=== PATIENT | female | born 1980 | race Hispanic/Latino ===

== ENCOUNTER 2017-09-06 17:35 | Emergency (ER) | payer MEDICAID ==
[2017-09-06 17:43] VITALS: BP 120/52
--- NOTE | 2017-09-06 21:43 | Emergency Department Report ---
- General Chief complaint: Skin/Abscess/Foreign Body Stated complaint: ABCESS, GROIN/ FEVER Time Seen by Provider: 09/06/17 21:01 Source: patient Mode of arrival: Ambulatory Limitations: No Limitations - History of Present Illness Initial comments: This is a 36-year-old female nontoxic, well nourished in appearance, no acute signs of distress presents to the ED with c/o of pus and drainage from an abscess in the left groin region. Patient stated she has a history of these. Patient stated the past week she developed an abscess but today it opened and started to drain. Patient denies any trauma to the region. Patient denies any fever, chills, headache, shortness of breathe, chest pain, numbness, tingling, abdominal pain. Patient states allergies to sulfa. Denies PMH. Patient stated she is not up to date with tetanus but refuses to get tetanus in the ED. MD complaint: abscess/boil -: week(s) (1) Tetanus Up to Date: no Location: genitals (left groin region) Severity: mild Severity scale (0 -10): 6 Quality: aching Consistency: constant Improves with: none Worsens with: none Context: none Associated symptoms: denies other symptoms Treatments Prior to Arrival: none - Related Data Previous Rx's Medication Instructions Recorded Last Taken Type Clindamycin [Clindamycin CAP] 300 mg PO Q8H 7 Days 09/06/17 Unknown Rx traMADol [Ultram] 50 mg PO Q6HR PRN #12 tablet 09/06/17 Unknown Rx Allergies Allergy/AdvReac Type Severity Reaction Status Date / Time Sulfa (Sulfonamide AdvReac Anaphylaxis Verified 09/06/17 17:45 Antibiotics) Abscess Boil HPI - HPI Chief Complaint: Skin/Abscess/Foreign Body Stated Complaint: ABCESS, GROIN/ FEVER Time Seen by Provider: 09/06/17 21:01 Home Medications: Previous Rx's Medication Instructions Recorded Last Taken Type Clindamycin [Clindamycin CAP] 300 mg PO Q8H 7 Days 09/06/17 Unknown Rx traMADol [Ultram] 50 mg PO Q6HR PRN #12 tablet 09/06/17 Unknown Rx Allergies/Adverse Reactions: Allergies Allergy/AdvReac Type Severity Reaction Status Date / Time Sulfa (Sulfonamide AdvReac Anaphylaxis Verified 09/06/17 17:45 Antibiotics) ED Review of Systems ROS: Stated complaint: ABCESS, GROIN/ FEVER Other details as noted in HPI Constitutional: denies: chills, fever Eyes: denies: eye pain, eye discharge, vision change ENT: denies: ear pain, throat pain Respiratory: denies: cough, shortness of breath, wheezing Cardiovascular: denies: chest pain, palpitations Endocrine: no symptoms reported Gastrointestinal: denies: abdominal pain, nausea, diarrhea Genitourinary: denies: urgency, dysuria, discharge Musculoskeletal: denies: back pain, joint swelling, arthralgia Skin: other (abscess). denies: rash, lesions Neurological: denies: headache, weakness, paresthesias Psychiatric: denies: anxiety, depression Hematological/Lymphatic: denies: easy bleeding, easy bruising ED Past Medical Hx - Past Medical History Previous Medical History?: No - Surgical History Past Surgical History?: Yes Additional Surgical History: tonsil, - Social History Smoking Status: Current Every Day Smoker Substance Use Type: None - Medications Home Medications: Home Medications Medication Instructions Recorded Confirmed Last Taken Type Clindamycin [Clindamycin CAP] 300 mg PO Q8H 7 Days 09/06/17 Unknown Rx traMADol [Ultram] 50 mg PO Q6HR PRN #12 tablet 09/06/17 Unknown Rx ED Physical Exam - General Limitations: No Limitations General appearance: alert, in no apparent distress - Head Head exam: Present: atraumatic, normocephalic, normal inspection - Eye Eye exam: Present: normal appearance, PERRL, EOMI. Absent: scleral icterus, conjunctival injection, nystagmus, periorbital swelling, periorbital tenderness Pupils: Present: normal accommodation - ENT ENT exam: Present: normal exam, normal orophraynx, mucous membranes moist, TM's normal bilaterally, normal external ear exam - Neck Neck exam: Present: normal inspection, full ROM. Absent: tenderness, meningismus, lymphadenopathy, thyromegaly - Respiratory Respiratory exam: Present: normal lung sounds bilaterally. Absent: respiratory distress, wheezes, rales, rhonchi, stridor, chest wall tenderness, accessory muscle use, decreased breath sounds, prolonged expiratory - Cardiovascular Cardiovascular Exam: Present: regular rate, normal rhythm, normal heart sounds. Absent: irregular rhythm, systolic murmur, diastolic murmur, rubs, gallop - GI/Abdominal GI/Abdominal exam: Present: soft, normal bowel sounds. Absent: distended, tenderness, guarding, rebound, rigid, diminished bowel sounds - Rectal Rectal exam: Present: deferred - External exam: Present: normal external exam, other (1 cm abscess that is open and draining with pus. No induration or fluctuance noted. Slight erythema noted. Callum Haines RN present during exam.) - Extremities Exam Extremities exam: Present: normal inspection, full ROM, normal capillary refill. Absent: tenderness, pedal edema, joint swelling, calf tenderness - Back Exam Back exam: Present: normal inspection, full ROM. Absent: tenderness, CVA tenderness (R), CVA tenderness (L), muscle spasm, paraspinal tenderness, vertebral tenderness, rash noted - Neurological Exam Neurological exam: Present: alert, oriented X3, CN II-XII intact, normal gait, reflexes normal - Psychiatric Psychiatric exam: Present: normal affect, normal mood - Skin Skin exam: Present: warm, dry, intact, normal color. Absent: rash ED Course Vital Signs 09/06/17 17:41 Temperature 98.7 F Pulse Rate 98 H Respiratory 18 Rate Blood Pressure 120/52 O2 Sat by Pulse 98 Oximetry - Reevaluation(s) Reevaluation #1: 09/06/17 21:46 Patient is speaking in full sentences with no signs of distress noted. ED Medical Decision Making - Medical Decision Making This is a 36-year-old female that presents with abscess with purulent drainage. Patient was examined by me and patient is stable. There is no induration or fluctuance noted. Slight erythema noted. Tender to touch. Patient was treated with clindamycin at discharge and Ultram. Patient was instructed not to operate any machinery while taking Ultram due to sedation/drowsiness. Patient was instructed to return to emergency room as soon as possible if symptoms of increased inflammation or any worsening symptoms. Follow-up with a primary care doctor in 3-5 days or if symptoms worsen and continue return to emergency room as soon as possible. At time time of discharge, the patient does not seem toxic or ill in appearance. No acute signs of distress noted. Patient agrees to discharge treatment plan of care. No further questions noted by the patient. Patient was instructed not to operate Any machinery after discharge due to receiving [place] and she stated her who is currently at the bedside which the patient home at discharge. Critical care attestation.: If time is entered above; I have spent that time in minutes in the direct care of this critically ill patient, excluding procedure time. ED Disposition Clinical Impression: Abscess Disposition: DC-01 TO HOME OR SELFCARE Is pt being admited?: No Does the pt Need Aspirin: No Condition: Stable Instructions: Acute Wound Care (ED), Clindamycin (By mouth), Tramadol (By mouth ) Additional Instructions: Follow-up with a primary care doctor in 3-5 days or if symptoms worsen such as increased swelling and continue return to emergency room as soon as possible. Do not operate any machinery after discharge due to drowsiness of [place]. Prescriptions: Clindamycin [Clindamycin CAP] 300 mg PO Q8H 7 Days traMADol [Ultram] 50 mg PO Q6HR PRN #12 tablet PRN Reason: Pain Referrals: PRIMARY CAREMD [Primary Care Provider] - 3-5 Days DEYSI BARNES MD [Staff Physician] - 3-5 Days [facility] [Outside] - 3-5 Days [facility] [Outside] - 3-5 Days Forms: Work/School Release Form(ED)
[2017-09-06] MEDS ORDERED: NORCO 10/325 PO ONE (21:50)
== END 2017-09-06 22:00 | disposition home or self-care (01) ==
LOC: ED 17:35
DX: L02.214 Cutaneous abscess of groin (principal); F17.200 Nicotine dependence, unspecified, uncomplicated
CPT/HCPCS: 99282

== ENCOUNTER 2017-12-20 23:11 | Emergency (ER) | payer MEDICAID | END 2017-12-21 00:20 | disposition left against medical advice (07) | LOC: ED 23:11 | DX: R07.9 Chest pain, unspecified (principal); R11.0 Nausea; Z53.21 Procedure and treatment not carried out due to patient leaving prior to being seen by health care provider ==